=== PATIENT | male | born 1995 | race Caucasian/White ===

== ENCOUNTER 2019-12-12 13:28 | Emergency (ER) | payer SELFPAY ==
[~2019-12-12] VITALS: Ht 172.7 cm; Wt 67.6 kg
--- NOTE | 2019-12-12 14:20 | NUR ---
URINE SENT TO LAB
--- NOTE | 2019-12-12 15:00 | NUR ---
PHLEB AT BEDSIDE FOR BLOOD DRAW.
--- NOTE | 2019-12-12 15:14 | NUR ---
Patient discharged to home in stable condition. Written and verbal after care instructions given. Patient verbalizes understanding of instruction.
[2019-12-12 15:15] VITALS: BP 141/73
[2019-12-12 15:15] LABS: BASOPHILS % (AUTO) 0.6 % (0.0-2.0); EOSINOPHILS % (AUTO) 0.6 % (0.0-6.0); HEMATOCRIT 50 % (39-51); HEMOGLOBIN 16.5 g/dL (13.5-17.5); LYMPHOCYTES # (AUTO) 1.4 /CMM (0.8-4.8); LYMPHOCYTES % (AUTO) 18.6 % (20.0-44.0); MEAN CORPUSCULAR HGB CONC 33 g/dl (31.0-36.0); MEAN CORPUSCULAR VOLUME 90 fL (80-96); MONOCYTES # (AUTO) 0.6 /CMM (0.1-1.30); MONOCYTES % (AUTO) 7.2 % (2.0-12.0); NEUTROPHILS # (AUTO) 5.6 /CMM (1.8-8.9); PLATELET COUNT (AUTO) 277 /CMM (150-450); RED BLOOD CELL COUNT(AUTO) 5.49 MIL/uL (4.5-6.0); WHITE BLOOD COUNT (AUTO) 7.7 K/uL (4.3-11.0)
[2019-12-12 15:20] LABS: CALCIUM, SERUM 8.4 mg/dL (8.5-10.1); CREATININE 1.3 mg/dL (0.6-1.3); POTASSIUM 4.1 mmol/L (3.5-5.1)
[2019-12-12 15:25] LABS: ALBUMIN 3.8 g/dL (3.4-5.0); BILIRUBIN,TOTAL 0.4 mg/dL (0.2-1.0); TOTAL PROTEIN, SERUM 8.5 g/dL (6.4-8.2)
== END 2019-12-12 15:15 | disposition home or self-care (01) ==
LOC: ER 13:28
DX: Z20.2 Contact with and (suspected) exposure to infections with a predominantly sexual mode of transmission (principal)
CPT/HCPCS: 36415; 80053-TC; 85025-TC; 87491; 87591; 87806

== ENCOUNTER 2020-04-04 09:23 | Emergency (ER) | payer SELFPAY ==
[~2020-04-04] VITALS: Ht 172.7 cm; Wt 68.0 kg
[2020-04-04 09:34] VITALS: BP 124/79
--- NOTE | 2020-04-04 09:59 | NUR ---
Patient discharged to home in stable condition. Written and verbal after care instructions given. Patient verbalizes understanding of instruction. Pt ambulatory with a steady gait
== END 2020-04-04 10:44 | disposition home or self-care (01) ==
LOC: ER 09:29
DX: M54.31 Sciatica, right side (principal)

== ENCOUNTER 2021-11-05 12:33 | Emergency (ER) | payer SELFPAY ==
[~2021-11-05] VITALS: Ht 167.6 cm; Wt 63.5 kg
[2021-11-05 12:33] VITALS: BP 126/70
--- NOTE | 2021-11-05 12:35 | NUR ---
AAOX3, came to ER c/o sorethroat x 2 days. Resp is even and unlabored with no apparent distress noted. Skin is warm and non diaphoretic. Will continuously monitor. Awaiting md for eval.
--- NOTE | 2021-11-05 13:36 | NUR ---
RAPID STREP AND COVID SWAB OBTAINED AND SENT TO LAB
== END 2021-11-05 15:35 | disposition home or self-care (01) ==
LOC: ER 12:39
DX: J02.9 Acute pharyngitis, unspecified (principal); Z20.822 Contact with and (suspected) exposure to COVID-19
CPT/HCPCS: 99283; 87426; 87070; 87880; C9803; 86403-TC

== ENCOUNTER 2022-12-30 20:26 | Emergency (ER) | payer OTHER ==
[~2022-12-30] VITALS: Ht 170.2 cm; Wt 72.6 kg
[2022-12-30 20:32] VITALS: TEMP 98.5
[2022-12-30] MEDS ORDERED: KETOROLAC TROMETHAMINE INJ 30 MG/ML VIAL ONE (20:37)
[2022-12-30] MEDS ORDERED: KETOROLAC TROMETHAMINE INJ 60 MG/2 ML VIAL IM ONE (21:00)
[2022-12-30 21:10] VITALS: BP 143/75; O2SAT 99
== END 2022-12-30 21:11 | disposition home or self-care (01) ==
LOC: ER 20:34
DX: S43.015A Anterior dislocation of left humerus, initial encounter (principal); Z60.2 Problems related to living alone; X58.XXXA Exposure to other specified factors, initial encounter; Y93.89 Activity, other specified; Y92.89 Other specified places as the place of occurrence of the external cause; Y99.8 Other external cause status
CPT/HCPCS: 99284; 23650; 73030 ×2; 96372; J1885

== ENCOUNTER 2023-04-10 07:44 | Emergency (ER) | payer OTHER ==
[~2023-04-10] VITALS: Ht 172.7 cm; Wt 72.6 kg
[2023-04-10 07:52] VITALS: TEMP 98
[2023-04-10] MEDS ORDERED: DOXYCYCLINE HYCLATE (100 MG) 100 MG TABLET PO ONE (08:30)
[2023-04-10] MEDS ORDERED: CEFTRIAXONE 500 MG VIAL IM ONE (08:30)
[2023-04-10] MEDS ORDERED: DOXYCYCLINE HYCLATE (100 MG) 100 MG TABLET ONE (08:34)
[2023-04-10] MEDS ORDERED: CEFTRIAXONE 500 MG VIAL ONE (08:34)
[2023-04-10] MEDS ORDERED: LIDOCAINE /MPF 1% VIAL 5 ML VIAL ONE (08:34)
[2023-04-10 08:37] LABS: APPEARANCE,URINE CLEAR (CLEAR); BILIRUBIN,URINE NEGATIVE (NEGATIVE); BLOOD, URINE NEGATIVE Ery/uL (NEGATIVE); COLOR,URINE YELLOW (YELLOW); KETONES,URINE TRACE mg/dL (NEGATIVE); LEUKOCYTE ESTERASE ,URINE NEGATIVE (NEGATIVE); NITRITE, URINE NEGATIVE (NEGATIVE); PH,URINE 7.5 (5.0-8.0); PROTEIN,URINE NEGATIVE (NEGATIVE); UGLUCOSE NEGATIVE (NEGATIVE)
[2023-04-10] MEDS ORDERED: DOXY100T2 PO (09:18)
[2023-04-10 09:44] VITALS: BP 142/90; O2SAT 97
[2023-04-10 15:17] LABS: HIV-1 p24 ANTIGEN NON REACTIVE (NONREACTIVE); HIV-1/2 ANTIBODY NON REACTIVE (NONREACTIVE)
[2023-04-12 22:11] LABS: CHLAMYDIA TRACHOMATIS NAA Negative (Negative); NEISSERIA GONORRHOEAE NAA Negative (Negative)
[2023-04-13 07:07] LABS: RAPID PLASMA REAGIN QUAL. Non Reactive (Non Reactive)
[2023-04-13 22:06] LABS: *HSV 1 DNA PCR Negative (Negative); *HSV 2 DNA PCR Negative (Negative)
== END 2023-04-10 09:44 | disposition home or self-care (01) ==
LOC: ER 07:44
DX: N41.9 Inflammatory disease of prostate, unspecified (principal); R30.0 Dysuria; Z60.2 Problems related to living alone
CPT/HCPCS: 99283; 96372; 81003; 87529; 87806; 87491; 87591; J0696; J3490; 36415; 86592; 86593

== ENCOUNTER 2024-06-11 16:53 | Emergency (ER) | payer OTHER ==
[~2024-06-11] VITALS: Ht 172.7 cm; Wt 72.6 kg
[~2024-06-11 16:53] MED LIST: DOXY100T2 PO
[2024-06-11 16:58] VITALS: BP 123/82; TEMP 97.6
[2024-06-11] MEDS ORDERED: CYCL10TA9 PO (17:40)
[2024-06-11 17:45] VITALS: O2SAT 98
== END 2024-06-11 17:45 | disposition home or self-care (01) ==
LOC: ER 16:53
DX: M62.838 Other muscle spasm (principal); H92.02 Otalgia, left ear; Z60.2 Problems related to living alone